=== PATIENT | male | born 1985 | race Caucasian/White ===

== ENCOUNTER 2018-07-25 15:39 | Emergency (ER) | payer MEDICAID ==
[~2018-07-25] VITALS: Ht 167.6 cm; Wt 100.0 kg
[2018-07-25] MEDS ORDERED: METF-414 PO (15:52)
[2018-07-25] MEDS ORDERED: LORA1TAB PO (15:52)
[2018-07-25] MEDS ORDERED: LITH150C PO (15:52)
[2018-07-25] MEDS ORDERED: SODIUM CHLORIDE 0.9% 1,000 ML IV ONE ×2 (16:05→16:45)
[2018-07-25 16:32] LABS: BASOPHILS % 0.6 % (0.0-2.0); EOSINOPHILS % 2.3 % (0.0-5.0); HEMATOCRIT. 41.1 % (42.0-52.0); HEMOGLOBIN. 13.4 g/dL (14.0-18.0); LYMPHOCYTES % 23.8 % (20.0-50.0); MEAN CORPUSCULAR HEMOGLOBIN 27.7 pg (28.0-32.0); MEAN CORPUSCULAR VOLUME 85.2 fL (80.0-94.0); MEAN PLATELET VOLUME 9.8 fl (7.4-10.4); MONOCYTES % 5.5 % (2.0-8.0); NEUTROPHILS % 67.8 % (40.0-76.0); PLATELET 244 x1000/uL (130-400); RED BLOOD CELL COUNT 4.83 mill/uL (4.7-6.1); RED CELL DISTRIBUTION WIDTH 16.5 % (11.6-14.6)
[2018-07-25 16:36] LABS: CHLORIDE 104 mEq/L (98-107)
[2018-07-25 16:47] LABS: BETA HYDROXYBUTYRATE 1.9 mMol/L (0.0-0.3)
[2018-07-25] MEDS ORDERED: INSULIN REGULAR (HUMULIN R) 300UNITS/3ML IV ONE ×2 (17:15→17:30)
[2018-07-25] MEDS ORDERED: ONDANSETRON HCL 4MG/2ML INJ IV ONE (17:15)
[2018-07-25] MEDS ORDERED: KCL 20MEQ/100ML PREMIX 100 ML IV ONE ×2 (17:15→17:30)
[2018-07-25] MEDS ORDERED: INSULIN REGULAR (DRIP) 100 UNITS in SODIUM CHLORIDE 0.9% 99 ML IV SCH (17:15)
[2018-07-25 17:24] LABS: BG BASE EXCESS -3.4 mmol/L (-2.0-2.0); BG CARBOXYHEMOGLOBIN 1.1 % (0.5-1.5); BG DEOXYHEMOGLOBIN 5.3 % (0.0-5.0); BG FRACTION INSPIRED OXYGEN 21; BG HCO3 ACT 21.4 mmol/L (22.0-26.0); BG METHEMOGLOBIN 0.2 % (0.0-1.5); BG OXYGEN SATURATION 94.6 % (92.0-98.5); BG OXYHEMOGLOBIN 93.4 % (94.0-97.0); BG PCO2 37.6 mmHg (35.0-45.0); BG PH 7.373 (7.350-7.450); BG PO2 72.9 mmHg (75.0-100.0); BG SAMPLE SITE LEFT RADIAL; BG TOTAL HEMOGLOBIN 13.2 g/dL (12.0-18.0); BG VENT MODE ROOM AIR
[2018-07-25 18:09] LABS: CLARITY URINE CLEAR (CLEAR); COLOR URINE YELLOW (YELLOW); KETONES URINE 1+ (NEGATIVE); LEUKOCYTE ESTERASE URINE NEGATIVE (NEGATIVE); NITRITE URINE NEGATIVE (NEGATIVE); OCCULT BLOOD URINE NEGATIVE (NEGATIVE); PROTEIN URINE NEGATIVE (NEGATIVE); UROBILINOGEN URINE 0.2 E.U./dL (0.2-1.0)
[2018-07-25 19:47] VITALS: BP 132/85
== END 2018-07-25 20:00 | disposition short-term general hospital (02) ==
LOC: ER 15:39 → EDBEDREQ 17:11 → EDBEDREQSVC 17:21 → EDBEDREQTM 17:21 → ENRESERV 17:23 → CANRESERV 17:25 → EDRESERV 17:25 → ENRESERV 17:25 → CANBEDREQ 17:36 → ER 20:00
DX: E11.65 Type 2 diabetes mellitus with hyperglycemia (principal); F20.9 Schizophrenia, unspecified; F31.9 Bipolar disorder, unspecified; F12.10 Cannabis abuse, uncomplicated; F17.200 Nicotine dependence, unspecified, uncomplicated
CPT/HCPCS: 36415; 36600; 71045; 80053; 81003; 82010; 82375; 82805; 82962; 83930; 84484; 85025; 93005; 96361; 96374; 96375; 99285; J1815; J2405; J3480; J7030; Z7610; J7050

== ENCOUNTER 2019-03-13 16:23 | Emergency (ER) | payer MEDICAID, OTHER ==
[~2019-03-13] VITALS: Ht 170.2 cm; Wt 90.0 kg
[~2019-03-13 16:23] MED LIST: LITH150C PO; LORA1TAB PO; METF-414 PO
[2019-03-13] MEDS ORDERED: SODIUM CHLORIDE 0.9% 1,000 ML IV ONE (16:47)
[2019-03-13 17:14] LABS: BASOPHILS % 0.7 % (0.0-2.0); EOSINOPHILS % 0.9 % (0.0-5.0); HEMATOCRIT. 45.2 % (42.0-52.0); HEMOGLOBIN. 14.8 g/dL (14.0-18.0); LYMPHOCYTES % 21.6 % (20.0-50.0); MEAN CORPUSCULAR HEMOGLOBIN 26.7 pg (28.0-32.0); MEAN CORPUSCULAR VOLUME 81.7 fL (80.0-94.0); MONOCYTES % 3.3 % (2.0-8.0); NEUTROPHILS % 73.5 % (40.0-76.0); PLATELET 279 x1000/uL (130-400); RED BLOOD CELL COUNT 5.54 mill/uL (4.7-6.1); RED CELL DISTRIBUTION WIDTH 16.4 % (11.6-14.6)
[2019-03-13 17:21] LABS: CHLORIDE 107 mEq/L (98-107)
[2019-03-13 17:23] LABS: PROTHROMBIN TIME 10.1 sec (9.6-11.0)
[2019-03-13 17:25] LABS: ETHANOL BLOOD < 10 mg/dL
[2019-03-13] MEDS ORDERED: SODIUM CHLORIDE 0.9% 1,000 ML IV NR (18:15)
[2019-03-13 19:37] VITALS: BP 119/71
[2019-03-13] MEDS ORDERED: CALCIUM GLUCONATE 100MG/ML 10ML VIAL IV ONE (20:15)
[2019-03-13] MEDS ORDERED: POTASSIUM CHLORIDE 20MEQ TABLET SR PO SCH (20:15)
== END 2019-03-13 21:15 | disposition short-term general hospital (02) ==
LOC: ER 16:23
DX: R45.851 Suicidal ideations (principal); T56.891A Toxic effect of other metals, accidental (unintentional), initial encounter; T43.591A Poisoning by other antipsychotics and neuroleptics, accidental (unintentional), initial encounter; Y92.9 Unspecified place or not applicable; E11.9 Type 2 diabetes mellitus without complications; F20.9 Schizophrenia, unspecified; F31.9 Bipolar disorder, unspecified
CPT/HCPCS: 36415; 80053; 80178; 80307; 80320; 80329; 82140; 83690; 85025; 85610; 93005; 99291; J0610; J7030; G0480